=== PATIENT | male | born 1965 | race Caucasian/White ===

== ENCOUNTER 2018-08-16 16:14 | Inpatient (IN) | payer BC ==
[~2018-08-16] VITALS: Ht 180.3 cm; Wt 90.0 kg
[~2018-08-16 16:14] MED LIST: ATENOLOL; Z.0.ATENOLOL50 MG PO; Z.0.ECOTRIN325 MG PO; Z.0.LIPITOR20 MG PO; Z.0.NORVASC10 MG PO; Z.0.PLAVIX75 MG PO
--- OUTSIDE RECORDS SUMMARY | 2018-08-16 16:16 | XMS REPORT | Clinical Summary ---
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 Last Filed Vital Signs Not on file Plan of Treatment Not on file Results Not on fileafter 08/15/2017 Insurance Payer Benefit Subscriber ID Type Phone Address Plan / Group [employer] BCBS OS xxxxxxxxxxxx PPO [phone] [address] POS/PPO/[place] [address] O (Home) [place] [address] Advance Directives For more information, please contact: [facility] [address] [place] [address] Date Inactivated Comments Code Status Date Activated 03/15/2016 5:24 PM Full Code 03/12/2016 7:29 PM This code status was determined by: Patient
[2018-08-16] MEDS ORDERED: LABETALOL HCL 5 MG/ML 20ML VIAL IV STA (16:24)
--- NOTE | 2018-08-16 16:48 | Diagnostic Imaging Report ---
Examination: CT head without contrast Clinical Indication: Left sided and arm numbness. Technique: Transaxial noncontrast images from the skull base through the vertex were obtained. Sagittal and coronal reformatted images were done. Dose modulation, iterative reconstruction, and/or weight based adjustment of the mA/kV was utilized to reduce the radiation dose to as low as reasonably achievable. Comparison: Head CT and brain MRI performed March 12, 2016. Brain MRI performed. Findings: Scalp: No abnormalities. Bones: Intact. No fractures. No blastic or lytic lesions. Brain sulci: Appropriate for patient's age. Ventricles: Normal in size and configuration. No hydrocephalus. . Extra-axial space: No abnormalities. Parenchyma: There is interval worsening of confluent areas of low-attenuation within subcortical and periventricular white matter, nonspecific, but could represent microvascular ischemic disease. There are several new chronic lacunar infarcts identified in the bilateral caudate heads, thalami, internal capsules and putamen and unchanged in the left mid cerebellum. No masses, hemorrhage, or acute or chronic cortical based vascular insults. Suprasellar region: No abnormalities. Craniocervical junction: The foramen magnum is patent. No Chiari one malformation. Incidental findings: Atherosclerotic calcification of the cavernous and supraclinoid internal carotid and V4 segments of the bilateral vertebral arteries. Mild inflammatory mucosal thickening of the bilateral ethmoid air cells and sphenoid sinuses. Impression: 1. No new acute intracranial finding when compared to prior head CT performed March 12, 2016. 2. Interval progression of chronic microvascular ischemic change , now of a moderate degree. 3. New chronic lacunar infarcts, as above. 4. Unchanged left mid cerebellar chronic lacunar infarct. Signed by: Dr. Yeni Estrella M.D. on 08/16/2018 4:45 PM
[2018-08-16 17:41] LABS: BASOPHILS # (AUTO) 0.1 (0.0-0.1); BASOPHILS % 1.4 % (0.0-1.0); EOSINOPHILS # (AUTO) 0.9 (0.0-0.4); EOSINOPHILS % 8.7 % (0.0-6.0); HEMATOCRIT 46.8 % (38.2-49.6); HEMOGLOBIN 15.6 g/dL (14.0-18.0); LYMPHOCYTES % 19.8 % (18.0-39.1); MEAN CORPUSCULAR HGB CONC 33.3 g/dL (31-35); MONOCYTES # (AUTO) 0.9 (0.2-0.8); NEUTROPHILS # (AUTO) 5.9 (2.1-6.9); NEUTROPHILS % 60.5 % (38.7-80.0); PLATELET COUNT 211 x10e3/uL (140-360); RED BLOOD COUNT 5.03 x10e6/uL (4.3-5.7); RED CELL DISTRIBUTION WIDTH 13.4 % (11.7-14.4)
[2018-08-16 17:50] LABS: INR 0.87; PROTHROMBIN TIME 12.7 seconds (11.9-14.5)
[2018-08-16 17:51] LABS: PARTIAL THROMBOPLASTIN TIME 27.7 seconds (23.8-35.5)
[2018-08-16 17:58] LABS: ALANINE AMINOTRANSFERASE 14 IU/L (0-55); ALBUMIN 3.8 g/dL (3.5-5.0); ALBUMIN/GLOBULIN RATIO 1.2 (0.8-2.0); ALKALINE PHOSPHATASE 52 IU/L (40-150); ANION GAP 12.9 mmol/L (8-16); BLOOD UREA NITROGEN 15 mg/dL (7-26); BUN/CREATININE RATIO 16 (6-25); CALCIUM 8.3 mg/dL (8.4-10.2); CARBON DIOXIDE 24 mmol/L (22-29); CHLORIDE 102 mmol/L (98-107); CREATINE KINASE 137 IU/L (30-200); CREATININE, SERUM 0.91 mg/dL (0.72-1.25); EST GLOMERULAR FILTRATION RATE > 60 ML/MIN (60-); GLUCOSE 91 mg/dL (74-118); POTASSIUM 3.9 mmol/L (3.5-5.1); SODIUM 135 mmol/L (136-145)
--- OUTSIDE RECORDS SUMMARY | 2018-08-16 18:04 | XMS REPORT | Clinical Summary ---
Author Author [facility] Organization [facility] Address Unknown Phone Unavailable Care Team Providers Care Corporate Human Resources Manager Name Role Phone Sharpless PCP Allergies No [...] [employer] OS xxxxxxxxxxxx PPO [phone] [address] POS/PPO/[place] [address] O (Home) [place] [address] Advance Directives For more information, please contact: [facility] [address] [place] [address] Date Inactivated Comments Code Status Date Activated 03/15/2016 5:24 PM Full Code 03/12/2016 7:29 PM This code status was determined by: Patient
--- OUTSIDE RECORDS SUMMARY | 2018-08-16 18:04 | XMS REPORT ---
[facility] Address Unknown Phone Unavailable Care Team Providers Care Rehabilitation Psychologist Name Role Phone Obdulia SOLITARIO Unavailable Unavailable Problems This patient has no known problems. Allergies, Adverse Reactions, Alerts This patient has no known allergies or adverse reactions. Medications This patient has no known medications. Results Test Description Test Time Test Comments Text Results Atomic Results Result Comments CT BRAIN WO 2018-08-16 16:41:00 [place] [address] Patient Name: SHEYLA MOORE MR #: [id number] : 1965 Age/Sex: 53/M Req #: [id number] [facility] Physician: Ordered by: WOOD SOLITARIO MD Report #: [id number] Location: ER Room/Bed: Procedure: [id number] CT/CT BRAIN WO Exam Date: 08/16/18 Exam Time: 1630 REPORT STATUS: Signed Examination: CT head without contrast Clinical Indication: Left sided and arm numbness. Technique: Transaxial noncontrast images from the skull base through the vertex were obtained. Sagittal and coronal reformatted images were done. Dose modulation, iterative reconstruction, and/or weight based adjustment of the mA/kV was utilized to reduce the radiation dose to as low as reasonably achievable. Comparison: Head CT and brain MRI performed March 12, 2016. Brain MRI performed. Findings: Scalp: No abnormalities. Bones: Intact. No fractures. No blastic or lytic lesions. Brain sulci: Appropriate for patient's age. Ventricles: Normal in size and configuration. No hydrocephalus. . Extra-axial space: No abnormalities. Parenchyma: There is interval worsening of confluent areas of low-attenuation within subcortical and periventricular white matter, nonspecific, but could represent microvascular ischemic disease. There are several new chronic lacunar infarcts identified in the bilateral caudate heads, thalami, internal capsules and putamen and unchanged in the left mid cerebellum. No masses, hemorrhage, or acute or chronic cortical based vascular insults. Suprasellar region: No abnormalities. Craniocervical junction: The foramen magnum is patent. No Chiari one malformation. Incidental findings: Atherosclerotic calcification of the cavernous and supraclinoid internal carotid and V4 segments of the bilateral vertebral arteries. Mild inflammatory mucosal thickening of the bilateral ethmoid air cells and sphenoid sinuses. Impression: 1. No new acute intracranial finding when compared to prior head CT performed March 12, 2016. 2. Interval progression of chronic microvascular ischemic change , now of a moderate degree. 3. New chronic lacunar infarcts, as above. 4. Unchanged left mid cerebellar chronic lacunar infarct. Signed by: Dr. Yeni Estrella M.D. on 08/16/2018 4:45 PM Dictated By: YENI RESENDEZ MD 44 Transcribed By: SABINO on 08/16/181644 COPY TO: WOOD SOLITARIO MD
[2018-08-16] MEDS ORDERED: VITAMIN B-121000 MCG PO (18:08)
[2018-08-16] MEDS ORDERED: ASPIRIN81 MG PO (18:08)
[2018-08-16] MEDS ORDERED: LISINOPRIL40 MG PO (18:08)
[2018-08-16] MEDS ORDERED: METOPROLOL TART50 MG PO (18:08)
[2018-08-16] MEDS ORDERED: ATORVASTATIN CA80 MG PO (18:08)
[2018-08-16 18:27] LABS: BILIRUBIN,URINE NEGATIVE (NEGATIVE); CLARITY,URINE SL CLOUDY (CLEAR); COLOR,URINE YELLOW (YELLOW); KETONES,URINE NEGATIVE (NEGATIVE); LEUKOCYTE ESTERASE ,URINE NEGATIVE (NEGATIVE); NITRITE,URINE NEGATIVE (NEGATIVE); PROTEIN,URINE DIPSTICK NEGATIVE (NEGATIVE); URINE UROBILINOGEN 0.2 mg/dL (0.2 - 1)
[2018-08-16] MEDS ORDERED: ENALAPRILAT IV INJ 1.25 MG/ML VIAL IV PRN (18:30)
[2018-08-16] MEDS ORDERED: LABETALOL HCL 5 MG/ML 20ML VIAL IV PRN (18:30)
[2018-08-16 18:42] LABS: RBC,URINE 0-5 /HPF (0-5); WBC,URINE (MAN) 0-5 /HPF (0-5)
[2018-08-16 18:43] LABS: BACTERIA,URINE RARE /HPF; EPITHELIAL CELLS,URINE RARE /LPF; MUCUS,URINE FEW (RARE)
[2018-08-16] MEDS ORDERED: ZOLPIDEM TARTRATE 10 MG TAB PO PRN (18:45)
--- NOTE | 2018-08-16 19:25 | History and Physical ---
HISTORY OF PRESENT ILLNESS: The patient is a 53-year-old man. He had 2 prior myocardial infarctions, one in 2002 and one in 2010. Both times, she required a stent. He has a cerebrovascular accident in 2016. He required t-PA and transferred to the [facility] for this. He recovered from the stroke well and had no residual defects. About 12:30 or 1:00 p.m. patient noticed sudden onset of numbness in his hand and difficulty moving his left hand. According to his , his hand looked like a claw and he was unable to dorsiflex the hand. He also remembers being unable to put his hand in his pocket. Over the intervening 5 to 6 hours, he has regained some movements in his hand and can now dorsiflex it. He still complains of weakness in his powder blender and some sensory changes mostly on the palmar surface. He denies any facial weakness, speech problems or other neurological abnormalities. PAST SURGICAL HISTORY 1. Status post cardiac stents in 2005. 2. Status post cardiac stent in 2010. He had a stress test about 2 or 3 years ago that was normal. He also had a carotid duplex within the year that was reported as normal. PAST MEDICAL HISTORY 1. Prior CVA as noted above. 2. Coronary artery disease. 3. Hypertension. SOCIAL HISTORY: The patient quit smoking today. He is not an active drinker. 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 ALLERGIES: NO KNOWN DRUG ALLERGIES. REVIEW OF SYSTEMS: There is no fever. He does not have headache. There is no neck pain. He does not complain of any chest pain. He has no difficulty breathing. There is no nausea or vomiting. There is no leg edema. He does have weakness and numbness in his hand as noted above. PHYSICAL EXAMINATION VITALS: The patient is afebrile. The blood pressure is 186/30 on the right side, but is significantly low on the left side. Pulse is 70. His respiratory rate is 17. HEENT: Examination shows no facial swelling or erythema. Nasal mucosa is normal. The oropharynx is normal. LYMPHATIC: Examination shows no submandibular, cervical or supraclavicular adenopathy. NECK: Shows no JVD or thyromegaly. There is no nuchal rigidity. CARDIAC: A regular rate and rhythm with a normal S1 and S2. There are no murmurs or rubs. LUNGS: Auscultation reveals clear breath sounds bilaterally. There is no wheezing. ABDOMEN: Soft, nontender. There is no rebound or guarding. EXTREMITIES: No leg edema or calf tenderness. There is no cyanosis or clubbing. SKIN: No rashes. NEUROLOGIC: Significant for weakness in the right hand. There is some weakness in the powder blender. He can dorsiflex his hands. He has some numbness on the palmar surfaces that does not localize to either the medial side or the ulnar side. She has no facial weakness. LABORATORY DATA: White blood cell count is 9.8 and hemoglobin is 15.6, the platelet count is 218,000. BUN to creatinine ratio is normal. The other electrolytes within normal limits. Liver function tests are within normal limits. RADIOGRAPHIC DATA: CT scan of the head shows no acute abnormalities. There are some changes consistent with old pulmonary infarcts and progression of the microvascular disease. IMPRESSIONS 1. Transient ischemic attack. 2. Hypertensive urgency. 3. High blood pressures in the 200s suggesting possible subclavian artery stenosis. 4. History of prior myocardial infarctions. 5. Coronary artery disease. PLAN 1. Blood pressure control. 2. Antiplatelet therapy. 3. MRI of the head. 4. Neurology evaluation. Job#: [id number] CQ
[2018-08-16 20:15] VITALS: BP 180/96
[2018-08-16 21:00] VITALS: BP 180/96
[2018-08-16 21:15] VITALS: BP 180/96
[2018-08-17] VITALS (9 sets, daily range): BP systolic 163–192; BP diastolic 79–117
[2018-08-17 04:46] LABS: BASOPHILS # (AUTO) 0.1 (0.0-0.1); BASOPHILS % 0.9 % (0.0-1.0); EOSINOPHILS # (AUTO) 0.8 (0.0-0.4); EOSINOPHILS % 7.7 % (0.0-6.0); HEMATOCRIT 45.4 % (38.2-49.6); HEMOGLOBIN 15.1 g/dL (14.0-18.0); LYMPHOCYTES # (AUTO) 2.1 (1.0-3.2); LYMPHOCYTES % 19.8 % (18.0-39.1); MEAN CORPUSCULAR HEMOGLOBIN 31.1 pg (28-32); MEAN CORPUSCULAR HGB CONC 33.3 g/dL (31-35); MEAN CORPUSCULAR VOLUME 93.4 fL (81-99); MONOCYTES # (AUTO) 1.1 (0.2-0.8); MONOCYTES % 10.6 % (4.4-11.3); NEUTROPHILS # (AUTO) 6.3 (2.1-6.9); NEUTROPHILS % 60.2 % (38.7-80.0); PLATELET COUNT 189 x10e3/uL (140-360); RED BLOOD COUNT 4.86 x10e6/uL (4.3-5.7); RED CELL DISTRIBUTION WIDTH 13.5 % (11.7-14.4)
[2018-08-17 05:05] LABS: ALANINE AMINOTRANSFERASE 14 IU/L (0-55); ALBUMIN 3.6 g/dL (3.5-5.0); ALBUMIN/GLOBULIN RATIO 1.2 (0.8-2.0); ALKALINE PHOSPHATASE 49 IU/L (40-150); ANION GAP 16.2 mmol/L (8-16); BLOOD UREA NITROGEN 13 mg/dL (7-26); BUN/CREATININE RATIO 16 (6-25); CALCIUM 8.3 mg/dL (8.4-10.2); CARBON DIOXIDE 24 mmol/L (22-29); CHLORIDE 105 mmol/L (98-107); CREATININE, SERUM 0.82 mg/dL (0.72-1.25); EST GLOMERULAR FILTRATION RATE > 60 ML/MIN (60-); GLUCOSE 100 mg/dL (74-118); POTASSIUM 4.2 mmol/L (3.5-5.1); SODIUM 141 mmol/L (136-145)
[2018-08-17] MEDS ORDERED: SODIUM CHLORIDE 0.9% 100 ML 100 ML ONE (08:38)
[2018-08-17] MEDS ORDERED: GADOBENATE DIMEGLUMINE 1 ML IV ONE (08:39)
[2018-08-17] MEDS: ATORVASTATIN 40 MG TAB PO SCH (08:58)
[2018-08-17] MEDS: CYANOCOBALAMIN 1,000 MCG TAB PO SCH (08:59)
[2018-08-17] MEDS ORDERED: LISINOPRIL 20 MG TAB PO SCH (09:00)
[2018-08-17] MEDS ORDERED: ASPIRIN 325 MG TAB EC PO SCH (09:00)
[2018-08-17] MEDS ORDERED: ACETAMINOPHEN 325 MG TAB PO PRN (12:45)
[2018-08-17] MEDS ORDERED: METOPROLOL TARTRATE 50 MG TAB PO SCH (13:30)
--- NOTE | 2018-08-17 16:38 | Diagnostic Imaging Report ---
EXAMINATION: Brain MRI and MR angiogram of the [facility] [place] [facility] [place] and Neck CLINICAL HISTORY: Left arm weakness for the last day, evaluate for CVA. COMPARISON: Head CT on 08/16/2018 TECHNIQUE: Brain: Sagittal T2; axial DWI, T2, FLAIR, T1-IR, T2 gradient echo; coronal FLAIR. MRAs: 3D TOF and 2D-TOF images were obtained of the brain and neck. Intravenous Contrast: 20 mL of MultiHance. BRAIN MRI FINDINGS: Parenchyma: 1. Multiple small cortico-subcortical areas of restricted diffusion on the right frontoparietal and right occipital lobes, consistent with watershed distribution cortical infarcts, a small focus of restricted diffusion is also seen in the left thalamus. 2. Multiple chronic lacunar infarcts in the right frontoparietal centrum semiovale in a inner zone watershed distribution, to a lesser extent there is also left-sided involvement. Tiny chronic lacunar infarct is also seen in the bilateral caudate, putamen, thalami and left paramedian scott. 3. Small chronic cortical infarct in the left cerebellum. 4. Moderate confluent periventricular and nelson radiata white matter hyperintense foci, most likely nonspecific chronic microvascular ischemic changes. 5. No mass, hemorrhage, acute or chronic infarcts. Skull: Unremarkable. Vessels: Expected flow voids present in the major arteries and dural sinuses. Extra-axial spaces: No abnormal signal intensity or mass effect. Brain volume: Within normal limits for age. Ventricles: No hydrocephalus or displacement. Foramen magnum: Unremarkable. Sella: Unremarkable. Paranasal / mastoid sinuses: No significant inflammatory disease. MRA OF THE NATIVE OF [place] : Minimal narrowing and irregularity of the intracranial vertebral and basilar arteries without significant stenosis. Mild narrowing of the right MCA bifurcation without significant stenoses. The distal internal carotid, distal vertebral, basilar, and cerebral arteries are patent. No significant stenosis, occlusion, aneurysm, or arteriovenous malformation is seen. Anatomic variation: Anterior Communicating Artery: Patent Posterior Communicating Arteries: No well-visualized Vertebral arteries: Codominant MRA OF THE NECK: If present, stenosis of the carotid bulbs is measured based on NASCET criteria i.e area of maximum stenosis compared to the cervical ICA distal to the bulb. Aortic arch and origin of the vessels: Unremarkable. Right Carotid Artery: Exophytic atherosclerotic plaque in the right carotid bulb results in moderate stenosis (50-69%). Otherwise the common carotid, carotid bulb, internal and external carotid arteries at the level of the neck are normal in caliber, and patent, no evidence of stenoses. Left Carotid Artery: Minimal atherosclerotic plaque without significant stenosis of the left carotid bulb (less than 50%). Otherwise the common carotid, carotid bulb, internal and external carotid arteries at the level of the neck are normal in caliber, and patent, no evidence of stenoses. Vertebral Arteries: Mild narrowing at the origin of the right vertebral artery. Mild narrowing and irregularity of the left greater right cervical vertebral arteries (mostly along the V2 segment, and left greater than right)without associated stenoses. Both are normal in morphology and caliber. Both are codominant. No significant stenosis is seen. IMPRESSION: Brain MRI: 1. Multiple small acute cortical watershed distribution infarcts in the right frontal parietal/occipital lobes and left thalamus. 2. Multiple small chronic ischemic infarcts as detail above. 3. Moderate chronic microvascular ischemic changes. MR angiogram of the head and neck: 1. Mild narrowing of the right MCA bifurcation, otherwise no abnormalities of the anterior intracranial circulation. 2. Moderate stenosis of the right carotid bulb (50-69%). 3. Mild stenosis of the left carotid bulb (less than 50%) . 4. Mild narrowing and irregularity of the bilateral cervical and intracranial vertebral arteries as described. Signed by: Dr. Irene Rey M.D. on 08/17/2018 4:34 PM
[2018-08-17 16:42] LABS: CHOL/HDL RATIO 4.5 (3.9-4.7)
[2018-08-17] MEDS ORDERED: ENOXAPARIN SOD INJ 40 MG/0.4 ML SYR SC SCH (17:00)
--- NOTE | 2018-08-17 18:44 | Consultation ---
DATE OF CONSULTATION: August 17, 2018 NEUROLOGY CONSULT NOTE HISTORY OF PRESENT ILLNESS: Mr. Drake is a 53-year-old right-hand dominant man with past medical history significant for hypertension, hyperlipidemia, coronary artery disease with 2 prior myocardial infarctions, and a stroke in 2016 with residual left hemiparesis (mild), admitted to [facility] on August 16, 2018 with symptoms concerning for a stroke. On the morning of admission, the patient was moving pipes (weighing approximately 30 pounds). When the patient took his lunch break, he noted the sudden onset of numbness, burning pain, tingling, and a pins and needle sensation over the palm and back of the left hand. As stated above, the symptoms began suddenly between 1230 and 1300 on the day of admission. Mr. Drake does not report a visual field cut or other disturbance, dysarthria, aphasia, facial droop, worsening left hemiparesis, impairment of gait or balance, dizziness, or confusion associated with the above symptoms. Mr. Drake finished out the work day and drove himself home. Upon his arrival at home, the patient informed his of his symptoms. Concerned the patient may be having another stroke, the patient's brought him to the emergency center at [facility] for further evaluation. Upon arrival in the emergency center, the patient was afebrile with a blood pressure of 228/140 mmHg and a pulse of 84 beats per minute. The patient's neurological examination was significant for weakness in the left arm and left hand. Otherwise, no focal deficits were noted. While in the emergency center, a CT of the brain without contrast was performed, that did not show evidence of recent large territorial ischemia or hemorrhage. Mr. Drake was admitted to [facility] for further evaluation and treatment of his symptoms. Mr. Drake does not report similar symptoms in his right hand. As stated above, the patient did have a stroke in 2016, for which he received intravenous tPA. Initially, the patient reports no residual deficits from the stroke. However, subsequently, he reports his strength is only "80% on my left side." Mr. Drake does take aspirin 81 mg by mouth daily for stroke prophylaxis. The patient does take anti-hypertensive as well as statin medications; however, he cannot recall the results of his most recent cholesterol panel. He does not monitor his blood pressure at home. Ms. Drake continued to smokes cigarettes daily until yesterday. REVIEW OF SYSTEMS: Numbness of the left hand, burning pain, tingling and pins and needle sensation of the left hand, left shoulder pain. PAST MEDICAL HISTORY: Hypertension, hyperlipidemia, coronary artery disease with 2 prior myocardial infarctions in 2004 and 2010, stroke in 2016 with mild residual left hemiparesis. PAST SURGICAL HISTORY: Cardiac stents x2 (2004 and 2010), implantation of a loop recorder. PAST HOSPITALIZATIONS: Surgeries/procedures as listed, stroke. FAMILY HISTORY: The patient's paternal and maternal grandparents are . Their medical histories are unknown. The patient's father is from lung cancer. Mr. Drake' mother is alive and has arthritis. The patient has 2 siblings, a brother and sister, both of whom are living. The patient's brother is reportedly healthy. His sister has heart disease. Mr. Drake has no biological children. SOCIAL HISTORY: The patient is . 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 As detailed in the history of present illness, Mr. Drake stopped smoking cigarettes yesterday, the day of his admission. Prior to this, he reports smoking one pack of cigarettes per day for approximately 18 months. The patient had quit smoking for a period of 6 months to 1 year following his stroke. Prior to that, he smoked 1 pack of cigarettes or more per day since the age of 16 years. The patient does not report current or prior alcohol or recreational drug use. HOME MEDICATIONS 1. Aspirin 81 mg by mouth daily. 2. Lisinopril 40 mg by mouth daily. 3. Metoprolol 50 mg by mouth daily. 4. Atorvastatin 80 mg by mouth at bedtime daily. 5. Vitamin B12 1000 mcg by mouth daily. ALLERGIES: NO KNOWN DRUG ALLERGIES. NO KNOWN FOOD ALLERGIES. NO KNOWN ALLERGIES TO LATEX. NO KNOWN ALLERGIES TO IODINE OR OTHER CONTRAST MATERIALS. PHYSICAL EXAMINATION VITAL SIGNS: Height 71 inches, weight 199 pounds, BMI 27.8 kg/m2. Blood pressure 167/79 mmHg, pulse 82 beats per minute, respiratory rate 20 breaths per minute, oxygen saturation 96% on room air. GENERAL: The patient is awake and alert, does not appear distressed. Overweight. HEENT: Normocephalic, atraumatic. Pupils are equal, round, and sluggishly reactive to light. Moist mucous membranes. NECK: Supple. No appreciable thyromegaly. Left carotid bruit. CARDIOVASCULAR: S1, S2, regular rate and rhythm. No murmurs, rubs, or gallops. RESPIRATORY: Clear to auscultation bilaterally. No wheezes, rhonchi, or rales. EXTREMITIES: The skin is warm and dry. No clubbing, cyanosis, or edema. The posterior tibial and dorsalis pedis pulses are 2+ and symmetric. SKIN: No rashes or lesions. NEUROLOGIC Memory/Attention: The patient is awake and alert, oriented to person, place, time, and situation. Cranial Nerves: Cranial nerve I - not tested. Cranial nerve II, III, IV, and - Pupils are equal and round, react sluggishly to light (from 6 mm to 4 mm). Extraocular movements intact. No nystagmus. Cranial nerve V - sensation to light touch and pinprick is intact in the bilateral V1 through V3 distributions. Strength of the temporalis and masseter muscles is within normal limits. Cranial nerve VII - the face is symmetric as are all facial movements. Strength is within normal limits. Cranial nerve VIII - hearing is intact to finger rub bilaterally. Cranial nerve IX, X - the soft palate elevates equally and symmetrically. Cranial nerve XI - normal strength of the bilateral sternocleidomastoid and trapezius muscles. Cranial nerve XII - the tongue protrudes midline and moves symmetrically from side to side. Strength: Bulk is normal. Strength is 5/5 in the bilateral deltoids, biceps, triceps, wrist flexors and extensors, finger flexors and extensors, intrinsic hand muscles, hip flexors, knee flexors and extensors, ankle dorsiflexion and plantarflexion, and intrinsic foot muscles except as follows: Strength in the left triceps, wrist extensors, and finger extensors 4+/5 and strength in the left hip and knee flexors 4/5. Tone is mildly increased in the left arm and left leg. DTRs: Deep tendon reflexes are 3+ at the left triceps, biceps, and brachioradialis. Deep tendon reflexes are 2+ at the right triceps, biceps, and brachioradialis. Deep tendon reflexes are trace and symmetric at the patellas. Deep tendon reflexes are absent and symmetric at the Achilles. Plantar responses are flexor bilaterally. Sensation: Sensation is intact to light touch and pinprick in both arms and both legs. Cerebellar: [id number] and heel-flores movements are intact without dysmetria or other impairment. Gait: Spontaneous gait is normal. Speech: Spontaneous speech is normal without appreciable dysarthria or aphasia. Repetition is intact. Involuntary Movements: None. Pronator Drift: None. LABORATORY DATA: A comprehensive metabolic panel is significant for an anion gap of 16.2 and a calcium of 8.3. The CBC with differential and platelets reveals a white blood cell count of 10.53 with 60.2% neutrophils, 19.8% lymphocytes, 10.6% monocytes, 7.7% eosinophils, and 0.9% basophils. PT, PTT, and INR are within normal limits. A urinalysis reveals slightly cloudy urine with trace blood. DIAGNOSTIC STUDIES: Electrocardiogram, 08/16/2018: Normal sinus rhythm at [address] of the brain without contrast, 08/16/2018: On my review, there is no evidence of recent large territorial ischemia, hemorrhage, mass, or mass effect. There are multiple chronic lacunar infarcts in the bilateral caudate nuclei, thalami, internal capsules, and putamen as well as the left mid cerebellum. Cerebral volumes are appropriate for age. There are findings compatible with [id number] chronic small vessel ischemic disease. Echocardiogram, 08/17/2018: Ejection fraction 50% to 55%. Concentric left ventricular hypertrophy. MRI of the brain without contrast, 08/17/2018: There are multiple acute cortical watershed distribution infarcts in the right frontoparietal/occipital lobes and the left thalamus. There are multiple chronic lacunar infarcts as described on the CT of brain without contrast. Cerebral volumes are appropriate for age. There are scattered nonspecific T2/FLAIR hyperintense foci in the supratentorial and infratentorial deep white matter compatible with moderate chronic small vessel ischemic disease. MRA of the brain and neck, 08/17/2018: 1. Mild narrowing of the right MCA bifurcation, otherwise no abnormalities of the anterior intracranial circulation. 2. Moderate stenosis of the right carotid bulb, 50% to 69%. 3. Mild stenosis of the left carotid bulb, less than 50%. 4. Mild narrowing and irregularity of the bilateral cervical or intracranial vertebral arteries as described. ASSESSMENT AND PLAN: Mr. Drake is a 53-year-old right-hand dominant man with multiple vascular risk factors, admitted to [facility] on August 16, 2018 with multiple embolic-appearing ischemic infarcts. The patient's neurological examination is significant for mild weakness in the extensors of the left arm and flexors of the left leg with diffuse hyperreflexia of the left arm. These deficits are reported to be residual from his prior stroke in 2016. The patient's laboratory data and other diagnostic studies have been reviewed and are documented above. RECOMMENDATIONS 1. A lipid panel and hemoglobin A1c will be ordered to complete a stroke evaluation. 2. Due to the embolic appearance of the acute ischemic infarcts on MR images of the brain, further evaluation with a transesophageal echocardiogram will be ordered. 3. Treatment with aspirin 81 mg by mouth daily will be discontinued and replaced with Plavix 75 mg by mouth daily. 4. Permissive hypertension should be allowed for 24 to 48 hours following a stroke. Mr. Drake has p.r.n. enalapril and labetalol ordered. The patient's blood pressure may be gradually normalized beginning on August 18, 2018. 5. Followup the results of the lipid panel. The patient's goal total cholesterol is less than 200 with a LDL of less than 70. Continue treatment with the patient's home statin medication. 6. Followup the results of the hemoglobin A1c. The patient's goal hemoglobin A1c is less than 7.0. Tight glycemic control is recommended while the patient is in the hospital. 7. Speech and physical therapy orders are pending better management of the patient's blood pressures. 8. GI prophylaxis with Pepcid 20 mg by mouth twice daily with meals. DVT prophylaxis with Lovenox 40 mg subcutaneously daily. 9. Smoking cessation counseling was provided to the patient. 10. Defer treatment of the remaining medical comorbidities to the primary and other services following the patient. Thank you for this consultation. I will continue to follow this patient while he remains in the hospital. TIME SPENT: 70 minutes. Job#: [id number] BERNA CAMP
[2018-08-18 00:21] VITALS: BP 166/80
[2018-08-18 05:10] VITALS: BP 175/93
[2018-08-18] MEDS ORDERED: FAMOTIDINE 20 MG TAB PO SCH (07:30)
[2018-08-18 08:41] VITALS: BP 152/88
[2018-08-18] MEDS ORDERED: CLOPIDOGREL BISULFATE 75 MG TAB PO SCH (09:00)
[2018-08-18] MEDS: ATORVASTATIN 40 MG TAB PO SCH (09:00)
[2018-08-18] MEDS: CYANOCOBALAMIN 1,000 MCG TAB PO SCH (09:00)
[2018-08-18 09:10] VITALS: BP 152/88
[2018-08-18] MEDS ORDERED: LISINOPRIL 20 MG TAB PO SCH (09:15)
[2018-08-18] MEDS ORDERED: METOPROLOL SUCCINATE 50 MG TAB XL PO SCH (09:15)
--- NOTE | 2018-08-18 10:50 | Consultation ---
DATE OF CONSULTATION: REQUESTING PHYSICIAN: Dr. Piter Christensen. REASON FOR CONSULTATION: Left arm numbness. HISTORY OF PRESENT ILLNESS: Mr. Drake is a 53-year-old gentleman with past medical history as listed below, presented with left arm numbness. Patient states that he developed left arm numbness the day before yesterday and had some difficulty moving his arm. He reportedly has had a stroke in 2016 and at that time he received thrombolytic therapy and was sent to the [facility]. He states that he recovered over 80% function of the left side. He denies any chest pain, shortness of breath, or palpitations. He has had a couple of MIs in the past. He sees Dr. Royal Christensen and has had a stress test a couple of years back and was told it was okay. He also reportedly had a carotid Doppler about a month back and was told he had no major blockages. Patient was seen yesterday and again today. REVIEW OF SYMPTOMS CONSTITUTIONAL: Has some fatigue and weakness. HEENT: No headache, blurry vision, seizures, or syncope. CARDIOVASCULAR: No chest pain, dyspnea, orthopnea, PND. Has left arm numbness. RESPIRATORY: No cough, fever, or expectoration. GI: No abdominal pain, vomiting, or diarrhea. : No dysuria, frequency, or incontinence. ALLERGIES: NO KNOWN DRUG ALLERGIES. MEDICATIONS: See list. PAST MEDICAL HISTORY 1. History of NV in 2002 and 2010, reportedly had stents at age 40. 2. History of CVA in 2016, received thrombolytic therapy, was sent to the [facility], states he recovered 80% on the left side. 3. History of hypertension. PAST SURGICAL HISTORY: History of coronary stents in 2005 and 2010. SOCIAL HISTORY: Used to smoke. He states he has quit smoking, does not drink alcohol. FAMILY HISTORY: Noncontributory. PHYSICAL EXAMINATION GENERAL: Well built and nourished gentleman, alert, oriented, not in any obvious distress. VITAL SIGNS: Heart rate is 72, blood pressure 152/88, respiratory rate 16, temperature is 96.8. HEENT: Atraumatic. NECK: No JVD, bruit, thyromegaly, or lymphadenopathy. CARDIOVASCULAR: First and second heart sounds heard. No murmurs, rubs, or gallops appreciated. CHEST: Clear to auscultation. ABDOMINAL: Soft, nontender. EXTREMITIES: No edema. LABORATORY DATA: WBC is 10.35, hemoglobin is 15.5, hematocrit is 45.4, platelets are 189. Sodium is 141, potassium 4.2, chloride is 101, bicarb is 24, BUN is 13, creatinine 0.8. Troponin is 0.013. Triglyceride is 89, cholesterol is 170, LDL is 114, HDL is 38. IMAGING: EKG shows sinus rhythm at 78 beats per minute, normal axis. LVH, prolonged QT interval, nonspecific ST-T changes. IMPRESSION 1. Left arm numbness; possible transient ischemic attack. 2. History of myocardial infarction and stent placement. 3. History of cerebrovascular accident. 4. Hypertension OTHER DIAGNOSIS: Hypertension. PLAN 1. Patient is being seen by neurology. 2. He reportedly had carotid Doppler about a month back and was told he had no major blockages. 3. Get echocardiogram to assess LV function and valvular function. 4. Continue with statin, antiplatelet agents, and antihypertensives. 5. Further cardiac workup depending on clinical course. I have discussed my impression and plan of management with patient and he understands. As always, I appreciate and thank you very much for your referrals. Job#: [id number] CANDIDO CAMP
--- NOTE | 2018-08-18 11:46 | Discharge Summary ---
DISCHARGE DIAGNOSES 1. Transient ischemic attack. 2. Accelerated hypertension. 3. Hypercholesterolemia. CONSULTING PHYSICIAN: Dr. Stein of neurology. RADIOGRAPHIC DATA: MRI of the brain shows: 1. Multiple small subcortical areas consistent with watershed infarcts. 2. Chronic lacunar infarcts. 3. Chronic infarct in the left-sided cerebellum. MRI of the neck shows 60% to 69% stenosis in the right carotid bulb as well as mild stenosis in the left carotid bulb. HISTORY OF PRESENT ILLNESS: Patient is a 53-year-old man. He has a history of hypertension and hyperlipidemia. He has 2 prior myocardial infarctions with prior stents. He had a history of CVA in 2016. He received tPA for this. The patient came in complaining of acute weakness in the left hand. He had difficulty dorsiflexing the wrist. He also noted some numbness on the palmar and dorsal surface. HOSPITAL COURSE: The patient was admitted. He was started on antiplatelet therapy. His symptoms gradually improved over the next 24 hours. At the time of discharge, his symptoms have resolved. The patient had elevated blood pressure. He received some labetalol and enalapril as needed initially and then his blood pressure improved. At the time of discharge, it was 150/90. Patient was seen in consultation by neurology. Neurology recommended a hemoglobin A1c, which was normal and a lipid panel. She also discussed the possibility of a transesophageal echo. The patient and his expressed a desire to follow up with their established neurologist at [facility]. She spoke with the neurologist over the phone last night. He mentioned the possibility of a focal seizure related to prior strokes. He asked the patient and his to obtain the reports and copies of the MRIs to bring with her to an appointment scheduled for Monday. We will assist the patient in obtaining the records and copies of the studies. I discussed the possibility of the transesophageal echocardiogram with the patient. He does not want this until he has a chance to speak with his regular neurologist. Discussed the importance of blood pressure control. He wants to continue on his prior medications until he has a chance to follow up with his outpatient neurologist and stock patch sawyer. DISPOSITION: The patient will be discharged home. He is scheduled to follow up with [facility] Neurology on Monday morning. He will also make appointment to see his stock patch sawyer as an outpatient to have his blood pressure rechecked. GENIA SALEH MD Job#: [id number] MAJ CAMP
== END 2018-08-18 10:00 | disposition home or self-care (01) | DRG 69 ==
LOC: ER 16:14 → ERHOLD 17:41 → MED/SURG2 20:45
PROVIDERS: ADMIT Internal Medicine Critical Care Medicine; ATTEND Internal Medicine Critical Care Medicine
DX: G45.9 Transient cerebral ischemic attack, unspecified (principal); I16.1 Hypertensive emergency; I69.354 Hemiplegia and hemiparesis following cerebral infarction affecting left non-dominant side; I10 Essential (primary) hypertension; I25.2 Old myocardial infarction; I25.10 Atherosclerotic heart disease of native coronary artery without angina pectoris; E78.00 Pure hypercholesterolemia, unspecified; F17.210 Nicotine dependence, cigarettes, uncomplicated; Z79.82 Long term (current) use of aspirin; Z95.5 Presence of coronary angioplasty implant and graft
CPT/HCPCS: 36415; 70450; 70544; 70549; 70551; 80053; 80061; 81001; 82550; 82553; 83036; 84484; 85025; 85610; 85730; 93005; 93306; 97139; 99284; J1650